=== PATIENT | male | born 1980 | race African-American/Black ===

== ENCOUNTER 2017-12-29 13:51 | Emergency (ER) | payer OTHER | END 2017-12-29 17:03 | disposition home or self-care (01) | LOC: D.ER 13:51 | DX: J20.9 Acute bronchitis, unspecified (principal); J06.9 Acute upper respiratory infection, unspecified; J01.90 Acute sinusitis, unspecified; J45.909 Unspecified asthma, uncomplicated ==

== ENCOUNTER 2017-12-30 12:51 | Emergency (ER) | payer OTHER ==
[2017-12-30 13:17] LABS: BASOPHILS 0.2 % (0-2); EOSINOPHILS 0.1 % (0-7); HEMATOCRIT 44.6 % (42.0-54.0); HEMOGLOBIN 14.7 g/dL (13.5-17.5); IMMATURE GRANULOCYTES 0.4 % (0-5); LYMPHOCYTES 14.9 % (15-50); MCH 26.3 pg (26.0-34.0); MCV 79.6 fL (80.0-100.0); MEAN PLATELET VOLUME 10.6 fL (7.4-10.4); NEUTROPHILS 77.4 % (40-80); PLATELET COUNT 240 10x3/uL (130-400); RDW 13.4 % (11.5-14.5); WBC 16.4 10x3/uL (4.8-10.8)
[2017-12-30 13:33] LABS: ALBUMIN 3.4 g/dL (3.4-5.0); ALKALINE PHOSPHATASE 64 U/L (46-116); ALT (SGPT) 21 U/L (10-68); CALC OSMOLALITY 286 mosm/kg (275-300); CALCIUM 8.8 mg/dL (8.5-10.1); CARBON DIOXIDE 26.8 mmol/L (21.0-32.0); CHLORIDE - SERUM 108 mmol/L (98-107); CREATININE - SERUM 0.9 mg/dL (0.6-1.3); GLUCOSE 137 mg/dL (74-106); POTASSIUM - SERUM 3.8 mmol/L (3.5-5.1); PROTEIN - SERUM 6.8 g/dL (6.4-8.2); SODIUM 143 mmol/L (136-145); UREA NITROGEN 13 mg/dL (7-18); eGFR NON AFRICAN AMERICAN > 90 mL/min (90-120)
[2017-12-30 13:34] LABS: TROPONIN-I < 0.017 ng/mL (0.000-0.060)
== END 2017-12-30 14:35 | disposition home or self-care (01) ==
LOC: D.ER 12:51
PROVIDERS: Emergency Medicine
DX: J01.90 Acute sinusitis, unspecified (principal); R09.1 Pleurisy

== ENCOUNTER 2018-01-04 21:24 | Emergency (ER) | payer OTHER | END 2018-01-04 22:37 | disposition home or self-care (01) | LOC: D.ER 21:24 | DX: J20.9 Acute bronchitis, unspecified (principal); J45.901 Unspecified asthma with (acute) exacerbation; R07.81 Pleurodynia ==

== ENCOUNTER 2018-12-03 12:54 | Emergency (ER) | payer OTHER ==
[~2018-12-03] VITALS: Ht 165.1 cm; Wt 135.0 kg
[2018-12-03 13:29] VITALS: Ht 165.1 cm; Wt 135.0 kg
[2018-12-03] MEDS ORDERED: GABAPENTIN100 MG PO (13:31)
[2018-12-03] MEDS ORDERED: INVEGA 3 MG ER T3 MG PO (13:31)
[2018-12-03] MEDS ORDERED: ZYBAN150 MG PO (13:31)
[2018-12-03] MEDS ORDERED: ACETAMINOPHEN500 M1 PO (14:54)
[2018-12-03] MEDS ORDERED: IBUPROFEN800 MG PO (14:54)
[2018-12-03] MEDS ORDERED: CYCLOBENZAPRINE10 MG PO (14:54)
[2018-12-03 15:22] VITALS: BP 146/87
== END 2018-12-03 15:23 | disposition home or self-care (01) ==
LOC: D.ER 12:54
DX: S93.402A Sprain of unspecified ligament of left ankle, initial encounter (principal); W18.30XA Fall on same level, unspecified, initial encounter; Y93.89 Activity, other specified; Y92.410 Unspecified street and highway as the place of occurrence of the external cause

== ENCOUNTER 2020-01-07 12:08 | Emergency (ER) | payer OTHER ==
[~2020-01-07 12:08] MED LIST: ACETAMINOPHEN500 M1 PO; CYCLOBENZAPRINE10 MG PO; GABAPENTIN100 MG PO; IBUPROFEN800 MG PO; INVEGA 3 MG ER T3 MG PO; ZYBAN150 MG PO
[2020-01-07 12:14] VITALS: Ht 165.1 cm
[2020-01-07] MEDS ORDERED: PREDNISONE10 MG PO (12:44)
[2020-01-07] MEDS ORDERED: ZPAK PO (12:44)
[2020-01-07] MEDS ORDERED: PROAIR HFA8.5 G1 INH (12:44)
[2020-01-07] MEDS ORDERED: ALBUTEROL1.25 MG/3 INH (12:50)
[2020-01-07 14:04] VITALS: BP 152/90
== END 2020-01-07 14:04 | disposition home or self-care (01) ==
LOC: D.ER 12:08
DX: J45.901 Unspecified asthma with (acute) exacerbation (principal); J40 Bronchitis, not specified as acute or chronic

== ENCOUNTER 2020-05-28 05:44 | Emergency (ER) | payer OTHER ==
[~2020-05-28] VITALS: Ht 165.1 cm; Wt 138.6 kg
[~2020-05-28 05:44] MED LIST changes: +ALBUTEROL1.25 MG/3 INH; +PREDNISONE10 MG PO; +PROAIR HFA8.5 G1 INH; +ZPAK PO
[2020-05-28 05:52] VITALS: Ht 165.1 cm; Wt 138.6 kg
[2020-05-28 06:51] LABS: BASOPHILS 0.3 % (0-2); EOSINOPHILS 4.4 % (0-7); HEMATOCRIT 42.3 % (42.0-54.0); HEMOGLOBIN 13.9 g/dL (13.5-17.5); IMMATURE GRANULOCYTES 0.3 % (0-5); LYMPHOCYTES 28.2 % (15-50); MCH 26.4 pg (26.0-34.0); MCHC 32.9 g/dL (31.0-37.0); MCV 80.4 fL (80.0-100.0); MEAN PLATELET VOLUME 10.1 fL (7.4-10.4); MONOCYTES 6.9 % (2-11); NEUTROPHILS 59.9 % (40-80); PLATELET COUNT 205 10x3/uL (130-400); RBC 5.26 10x6/uL (4.20-6.10); RDW 13.7 % (11.5-14.5); WBC 8.7 10x3/uL (4.8-10.8)
[2020-05-28] MEDS ORDERED: ULTRAM50 MG PO (07:10)
[2020-05-28] MEDS ORDERED: CYCLOBENZAPRINE10 MG PO (07:10)
[2020-05-28 07:20] LABS: CALC OSMOLALITY 280 mosm/kg (275-300); CALCIUM 8.5 mg/dL (8.5-10.1); CARBON DIOXIDE 26.6 mmol/L (21.0-32.0); CHLORIDE - SERUM 106 mmol/L (98-107); CREATININE - SERUM 0.9 mg/dL (0.6-1.3); GLUCOSE 152 mg/dL (74-106); POTASSIUM - SERUM 3.5 mmol/L (3.5-5.1); SODIUM 139 mmol/L (136-145); UREA NITROGEN 12 mg/dL (7-18); eGFR NON AFRICAN AMERICAN > 90 mL/min (90-120)
[2020-05-28 07:46] LABS: ALBUMIN 3.3 g/dL (3.4-5.0); ALKALINE PHOSPHATASE 89 U/L (30-120); ALT (SGPT) 44 U/L (10-68); BILIRUBIN - TOTAL 0.84 mg/dL (0.2-1.3); CREATINE KINASE 314 UL (21-232); PROTEIN - SERUM 6.9 g/dL (6.4-8.2)
[2020-05-28 08:24] VITALS: BP 118/58
[2020-05-28 09:14] LABS: CKMB 1.8 U/L (0.0-3.6)
== END 2020-05-28 08:24 | disposition home or self-care (01) ==
LOC: D.ER 05:44
PROVIDERS: Family Medicine
DX: S30.1XXA Contusion of abdominal wall, initial encounter (principal); V89.2XXA Person injured in unspecified motor-vehicle accident, traffic, initial encounter; Y93.9 Activity, unspecified; Y92.9 Unspecified place or not applicable; S70.02XA Contusion of left hip, initial encounter

== ENCOUNTER 2021-01-05 04:26 | Emergency (ER) | payer MEDICAID ==
[~2021-01-05 04:26] MED LIST changes: +ULTRAM50 MG PO
[2021-01-05 04:28] VITALS: BP 156/89; Ht 165.1 cm
[2021-01-05] MEDS ORDERED: PROVENTIL/2.5 MG/3 M (04:35)
[2021-01-05] MEDS ORDERED: VENTOLIN HFA [SP8 GM INH (04:47)
[2021-01-05] MEDS ORDERED: MEDROL DOSE PACK4 MG PO (04:48)
== END 2021-01-05 05:19 | disposition home or self-care (01) ==
LOC: D.ER 04:26
DX: J45.909 Unspecified asthma, uncomplicated (principal)